=== PATIENT | female | born 1990 | race Caucasian/White ===

== ENCOUNTER 2016-03-06 17:53 | Emergency (ER) | payer OTHER ==
[~2016-03-06] VITALS: Ht 167.6 cm; Wt 109.7 kg
[~2016-03-06 17:53] MED LIST: BACT800T5 PO; CEPH-460 PO; PERC7.5T13 PO
[2016-03-06 17:56] VITALS: BP 135/99; PULSE 110; RESP 16; TEMP 98.7; O2SAT 98
[2016-03-06] MEDS ORDERED: MEDR4PAK PO (18:22)
[2016-03-06] MEDS ORDERED: AMOX875T PO (18:22)
--- NOTE | 2016-03-06 18:24 | PD ---
HPI Chief Complaint: ENT Complaint Time Seen by Provider: 18:22 Travel History International Travel<30 days: No Contact w/Intl Traveler<30days: No Traveled to known affect area: No History of Present Illness HPI 26-year-old female that presents to the ED for evaluation of bilateral ear pain. Patient has had this for the past couple of weeks but today and yesterday got worse. Per patient she does have a history of ear infections in the past with similar symptoms. Per patient he was initially just a little ache with some congestion and mild cough but she attributed this to the change in climate. Today the pain became more severe and that she is having some nausea and vomiting from it. Per patient is the same symptoms she always gets. She denies history of asthma. Not chest or shortness of breath. Allergy to Toradol. Has been taking OTC meds with minimal relief. Pain is 7 out of 10. Denies any fevers chills or sweats. PFSH Past Medical History Cancer: No Diabetes: No Diminished Hearing: No Seizures: No Thyroid Disease: No Ulcer: No Tetanus Vaccination: Unknown ?: Not LMP: 02/20/16 Past Surgical History Tonsillectomy: Yes Other Surgery: Yes (T&A AT 5 YEARS OLD.) Social History Alcohol Use: Yes (OCC) Tobacco Use: No Substance Use: Yes (OCC MARIJUANA) Allergies-Medications (Allergen,Severity, Reaction): Coded Allergies: Toradol (Verified Allergy, Mild, HIVES, 03/06/16) Reported Meds & Prescriptions Reported Meds & Active Scripts Active Medrol Dosepak (Methylprednisolone) 4 Mg Dspk 4 Mg PO DIRECTED Per Pharmacist direction Amoxicillin 875 Mg Tab 875 Mg PO BID 10 Days Review of Systems Except as stated in HPI: all other systems reviewed are Neg Physical Exam Narrative GENERAL: Well-nourished, well-developed patient in no apparent distress. SKIN: Warm and dry. HEAD: Atraumatic. Normocephalic. EYES: Pupils equal and round reactive to light and accommodation. No scleral icterus. No injection or drainage. ENT: No nasal bleeding or discharge. Mucous membranes pink and moist. TMs are red and bulging bilaterally.. No mastoid tenderness. Ear canals are intact bilaterally. No lymphadenopathy. Nostril mucosa is red and moist with clear mucus noted. No sinus tenderness to palpation noted. Tonsils are not enlarged or swollen. No ulvua Deviation. Tongue is midline. NECK: Trachea midline. No JVD. No meningeal signs noted CARDIOVASCULAR: Regular rate and rhythm. RESPIRATORY: No accessory muscle use. Clear to auscultation. Breath sounds equal bilaterally. Data Data Last Documented VS Vital Signs Date Time Temp Pulse Resp B/P Pulse Ox O2 Delivery O2 Flow Rate FiO2 03/06/16 17:56 98.7 110 16 135/99 98 MDM Medical Decision Making Medical Screen Exam Complete: Yes Emergency Medical Condition: Yes Medical Record Reviewed: Yes Differential Diagnosis Otitis media versus otitis externa versus mastoiditis versus foreign body versus cerumen impaction versus perforated eardrum versus eustachian tube dysfunction versus bug in the ear versus serous otitis media Narrative Course 26-year-old female that presents to the ED for evaluation of bilateral ear pain. Patient was properly examined and was found to have signs and symptoms consistent with otitis media bilaterally. Patient was treated for this with amoxicillin and Medrol Dosepak. Told to follow with PCP. Take OTC medicines as needed. See ED worsening symptoms. Diagnosis Primary Impression: Otitis media Qualified Code: H65.03 - Bilateral acute serous otitis media, recurrence not specified Patient Instructions: General Instructions Additional Instructions: Motrin and Tylenol for pain and fever. You can use gxcv-[id number] antihistamine as well as well as Mucinex as needed for runny nose and congestion. Cough drops for cough as needed. Drink plenty of fluids. Follow-up with PCP. See ED for worsening symptoms. Med/Other Pt SpecificInfo: Prescription(s) given Scripts Methylprednisolone Dosepak (Medrol Dosepak)4 Mg Dspk4 Mg PO DIRECTED #1 DSPK Ref 0 Per Pharmacist direction Prov:Erika Segura DO 03/06/16 Amoxicillin 875 Mg Ali511 Mg PO BID 10 Days Prov:Erika Segura DO 03/06/16 Disposition: 01 DISCHARGE HOME Condition: Stable Kwasi Nathan Mar 06, 2016 18:24
== END 2016-03-06 18:32 | disposition home or self-care (01) ==
LOC: PHEFT 17:53
DX: H66.93 Otitis media, unspecified, bilateral (principal)
CPT/HCPCS: 99283

== ENCOUNTER 2016-05-25 13:21 | Emergency (ER) | payer SELFPAY ==
[~2016-05-25] VITALS: Ht 165.1 cm; Wt 106.0 kg
[~2016-05-25 13:21] MED LIST changes: +AMOX875T PO; -BACT800T5 PO; -CEPH-460 PO; +MEDR4PAK PO; -PERC7.5T13 PO
[2016-05-25 13:30] VITALS: BP 135/102; PULSE 100; RESP 17; TEMP 98.1; O2SAT 98
--- NOTE | 2016-05-25 13:43 | PD ---
HPI Chief Complaint: ENT Complaint Time Seen by Provider: 13:43 Travel History International Travel<30 days: No Contact w/Intl Traveler<30days: No Traveled to known affect area: No History of Present Illness HPI 26-year-old female comes in with worsening bilateral ear pain right greater than left over the past week. Patient has history of recurrent ear pain and "otitis media" as well as sinus infections over the last several years. Patient states her pain is always worse first thing in the morning and wakes her up at night. Patient denies fever, chills, congestion, postnasal drip. She denies sore throat or other upper respiratory symptoms. Patient has no history of seasonal allergies. Patient denies dental pain per se but does have increased pain with chewing and yawning. Patient has been treated in the past with antibiotics for this, but always seems to come back. She is allergic to Toradol. PFSH Past Medical History Cancer: No Diabetes: No Diminished Hearing: No Seizures: No Thyroid Disease: No Ulcer: No ?: Not LMP: 2 WEEKS Past Surgical History Tonsillectomy: Yes Other Surgery: Yes (T&A AT 5 YEARS OLD.) Social History Alcohol Use: Yes (OCC) Tobacco Use: No Substance Use: Yes (OCC MARIJUANA) Allergies-Medications (Allergen,Severity, Reaction): Coded Allergies: Toradol (Verified Allergy, Mild, HIVES, 05/25/16) Reported Meds & Prescriptions Reported Meds & Active Scripts Active Amoxicillin 875 Mg Tab 875 Mg PO BID Flexeril (Cyclobenzaprine HCl) 10 Mg Tab 10 Mg PO DIRECTED at bedtime. Prednisone 20 Mg Tab 20 Mg PO BID Medrol Dosepak (Methylprednisolone) 4 Mg Dspk 4 Mg PO DIRECTED Per Pharmacist direction Amoxicillin 875 Mg Tab 875 Mg PO BID 10 Days Review of Systems Except as stated in HPI: all other systems reviewed are Neg General / Constitutional: No: Fever, Chills Eyes: No: Visual changes HENT: Positive: Congestion, Dental Difficulties, Earache, No: Headaches, Sore Throat, Rhinitis, Rhinorrhea, Nosebleed, Neck Stiffness, Ear Discharge Cardiovascular: No: Chest Pain or Discomfort Respiratory: No: Shortness of Breath Gastrointestinal: No: Abdominal Pain Genitourinary: No: Dysuria Musculoskeletal: No: Pain Skin: No Rash Neurologic: No: Weakness Psychiatric: No: Depression Endocrine: No: Polydipsia Hematologic/Lymphatic: No: Easy Bruising Physical Exam Narrative GENERAL: Patient is in no acute distress. SKIN: Warm and dry. Normal color. Normal turgor. No rash. HEAD: Atraumatic. Normocephalic. Patient is tenderness with palpation of TMJ bilaterally more right than left with audible and palpable click with mandibular maneuvers. EYES: Pupils equal and round. No scleral icterus. No injection or drainage. ENT: No nasal bleeding or discharge. Mucous membranes pink and moist. TMs are somewhat dull bilaterally but no injection or significant signs of infection. Pharynx is unremarkable. No significant lymphadenopathy. No exudate. No postnasal drip. No sinus tenderness to palpation. NECK: Trachea midline. No JVD. Supple nontender. No significant lymphadenopathy. CARDIOVASCULAR: Regular rate and rhythm. RESPIRATORY: No accessory muscle use. Clear to auscultation. Breath sounds equal bilaterally. MUSCULOSKELETAL: Extremities without clubbing, cyanosis, or edema. No obvious deformities. NEUROLOGICAL: Awake and alert. No obvious cranial nerve deficits. Motor grossly within normal limits. Five out of 5 muscle strength in the arms and legs. Normal speech. PSYCHIATRIC: Appropriate mood and affect; insight and judgment normal. Data Data Last Documented VS Vital Signs Date Time Temp Pulse Resp B/P Pulse Ox O2 Delivery O2 Flow Rate FiO2 05/25/16 13:42 20 05/25/16 13:30 98.1 100 135/102 98 MDM Medical Decision Making Medical Screen Exam Complete: Yes Emergency Medical Condition: Yes Differential Diagnosis Ear pain. Serous otitis. TMJ. Sinusitis. Narrative Course Patient is medically stable at time of exam. I do not see an obvious ear infection at this time, and suspect TMJ is the more likely cause of the patient's symptoms. Patient will be placed on prednisone 20 mg twice a day for 5 days. Patient is also given Flexeril 10 mg at bedtime #30. Patient is given a prescription for amoxicillin only to be taken if she develops sinusitis symptoms including fever and purulent drainage. We discussed TMJ and various treatment options including mouth guards etc. Patient is recommended to follow-up with her dentist regarding this issue. Patient can return the emergency Department with worsening symptoms as needed. Diagnosis Primary Impression: TMJ (temporomandibular joint disorder) Referrals: Dentist Patient Instructions: General Instructions, Temporomandibular Disorder (ED) Additional Instructions: I do not see an obvious ear infection at this time, and suspect TMJ is the more likely cause of the patient's symptoms. Patient will be placed on prednisone 20 mg twice a day for 5 days. Patient is also given Flexeril 10 mg at bedtime #30. Patient is given a prescription for amoxicillin only to be taken if she develops sinusitis symptoms including fever and purulent drainage. We discussed TMJ and various treatment options including mouth guards etc. Patient is recommended to follow-up with her dentist regarding this issue. Patient can return the emergency Department with worsening symptoms as needed. Med/Other Pt SpecificInfo: Prescription(s) given Scripts Amoxicillin 875 Mg Nwe429 Mg PO BID #20 TAB Prov:Akosua Lanza MD 05/25/16 Cyclobenzaprine (Flexeril)10 Mg Tab10 Mg PO DIRECTED #30 TAB Ref 0 at bedtime. Prov:Akosua Lanza MD 05/25/16 Prednisone 20 Mg Tab20 Mg PO BID #10 TAB Prov:Akosua Lanza MD 05/25/16 Disposition: 01 DISCHARGE HOME Condition: Stable Hayden Morelos May 25, 2016 13:43
[2016-05-25] MEDS ORDERED: CYCL1TAB29 PO (13:54)
[2016-05-25] MEDS ORDERED: AMOX875T PO (13:54)
[2016-05-25] MEDS ORDERED: PRED20 PO (13:54)
== END 2016-05-25 14:04 | disposition home or self-care (01) ==
LOC: PHEFT 13:21
DX: M26.603 Bilateral temporomandibular joint disorder, unspecified (principal)
CPT/HCPCS: 99282

== ENCOUNTER 2016-08-21 17:27 | Emergency (ER) | payer SELFPAY ==
[~2016-08-21] VITALS: Ht 165.1 cm; Wt 107.0 kg
[~2016-08-21 17:27] MED LIST changes: +CYCL1TAB29 PO; +PRED20 PO
[2016-08-21 17:36] VITALS: BP 156/106; PULSE 109; RESP 16; TEMP 98.7; O2SAT 99
--- NOTE | 2016-08-21 18:50 | RADRPT ---
EXAM DATE/TIME: 08/21/2016 18:09 [facility] COMPARISON: No previous studies available for comparison. INDICATIONS : Trauma, fall off skateboard. MEDICAL HISTORY : None. SURGICAL HISTORY : None. ENCOUNTER: Initial ACUITY: 1 day PAIN SCORE: 8/10 LOCATION: Left lateral foot FINDINGS: Three views of the left foot demonstrate no fracture or dislocation. The Lisfranc joint appears intac t. Mineralization is within normal limits and there is no significant arthropathy. No soft tissue abn ormality is identified. There are 2 linear serpiginous densities measuring up to 5 mm in the plantar aspect distal first digit soft tissues. CONCLUSION: 1. No fracture is identified. 2. Nonspecific linear density/foreign bodies in the plantar aspect soft tissues of the distal first d igit. Tano Del Rosario MD on August 21, 2016 at 18:46 Board Certified Radiologist. This report was verified electronically.
--- NOTE | 2016-08-21 18:53 | RADRPT ---
EXAM DATE/TIME: 08/21/2016 18:12 [facility] COMPARISON: No previous studies available for comparison. INDICATIONS : Trauma, fall off skateboard. MEDICAL HISTORY : None. SURGICAL HISTORY : None. ENCOUNTER: Initial ACUITY: 1 day PAIN SCORE: 8/10 LOCATION: Left lateral ankle FINDINGS: 3 views the left ankle demonstrate no fracture or dislocation. Ankle mortise is intact. Mineralizatio n is within normal limits and there is no significant arthropathy. No radiopaque foreign body is iden tified. There is lateral ankle soft tissue swelling. CONCLUSION: Lateral ankle soft tissue swelling. No fracture is identified. Tano Del Rosario MD on August 21, 2016 at 18:50 Board Certified Radiologist. This report was verified electronically.
--- NOTE | 2016-08-21 19:10 | PD ---
HPI Chief Complaint: Injury Time Seen by Provider: 18:00 Travel History International Travel<30 days: No Contact w/Intl Traveler<30days: No Traveled to known affect area: No History of Present Illness HPI 26-year-old female resents emergency department for evaluation of left ankle and foot pain status post twisting injury while riding a skateboard approximately 3 hours prior to arrival. Patient reports she has lateral ankle and foot pain, nonradiating, worse with weightbearing and movement, relieved with rest, severity 6 out of 10. She denies numbness or tingling in the extremity. No deformity noted. She denies falling to the ground. No head injury. No loss of consciousness. Denies any other injuries. [facility] Past Medical History Medical History: Denies Significant Hx Diminished Hearing: No Tetanus Vaccination: Unknown Influenza Vaccination: No ?: Not LMP: 3 WEEKS Past Surgical History Tonsillectomy: Yes Other Surgery: Yes (T&A AT 5 YEARS OLD.) Social History Alcohol Use: Yes (OCC) Tobacco Use: No Substance Use: Yes (OCC MARIJUANA) Allergies-Medications (Allergen,Severity, Reaction): Coded Allergies: Tramadol (Verified Allergy, Unknown, Hives, 08/21/16) Reported Meds & Prescriptions Reported Meds & Active Scripts Active Physical Exam Narrative GENERAL: Well-nourished, well-developed patient. SKIN: Focused skin assessment warm/dry. HEAD: Normocephalic. EYES: No scleral icterus. No injection or drainage. NECK: Supple, trachea midline. No JVD or lymphadenopathy. CARDIOVASCULAR: Regular rate and rhythm without murmurs, gallops, or rubs. RESPIRATORY: Breath sounds equal bilaterally. No accessory muscle use. GASTROINTESTINAL: Abdomen soft, non-tender, nondistended. MUSCULOSKELETAL: No cyanosis. Left ankle and foot: Notable swelling and tenderness to the lateral malleolus and over the base of the fifth metatarsal. 2+ distal pulses. Normal sensation with 2-point termination. Brisk cap refill. No deformity BACK: Nontender without obvious deformity. No CVA tenderness. Data Data Last Documented VS Vital Signs Date Time Temp Pulse Resp B/P Pulse Ox O2 Delivery O2 Flow Rate FiO2 08/21/16 17:36 98.7 109 16 156/106 99 Orders Ankle, Complete ([id number]) (08/21/16 ) Foot, Complete ([id number]) (08/21/16 ) [facility] Medical Decision Making Medical Screen Exam Complete: Yes Emergency Medical Condition: Yes Differential Diagnosis Left ankle and foot pain- sprain versus strain versus fracture Narrative Course [age] female presents emergency Department with left ankle and foot pain status post twisting injury while riding a skate board. Patient denies falling to the ground. She denies any other injuries. The extremity is neurovascularly intact without deformity. X-ray reveal no fracture within the ankle or foot. There was an incidental finding of 2 small radiopaque foreign bodies in the great toe unrelated to this injury. This was discussed with patient she was instructed to follow up with her primary. Diagnosis Primary Impression: Ankle sprain Qualified Code: S93.402A - Sprain of left ankle, unspecified ligament, initial encounter Departure Forms: Tests/Procedures, Work Release Enter return to work date: Aug 25, 2016 Special Instructions: allow use of crutches until weight bearing possible. Disposition: 01 DISCHARGE HOME Condition: Stable Zoila Devine Aug 21, 2016 19:10
== END 2016-08-21 19:36 | disposition home or self-care (01) ==
LOC: PHEFT 17:27
DX: S93.402A Sprain of unspecified ligament of left ankle, initial encounter (principal); X50.1XXA Overexertion from prolonged static or awkward postures, initial encounter; Y93.51 Activity, roller skating (inline) and skateboarding; Y92.9 Unspecified place or not applicable; Y99.8 Other external cause status
CPT/HCPCS: 73610; 73630; 99283; E0113; L1906

== ENCOUNTER 2017-01-26 11:03 | Emergency (ER) | payer SELFPAY ==
[~2017-01-26] VITALS: Ht 165.1 cm; Wt 111.0 kg
[2017-01-26 11:08] VITALS: BP 144/90; PULSE 107; RESP 18; O2SAT 98
--- NOTE | 2017-01-26 12:37 | PD ---
HPI Chief Complaint: ENT Complaint Time Seen by Provider: 11:53 Travel History International Travel<30 days: No Contact w/Intl Traveler<30days: No Traveled to known affect area: No History of Present Illness HPI 26-year-old female presents to the emergency room for evaluation of nonproductive cough, congestion, sore throat, and earache for the past 3 days. Patient states it started off as left ear pain and has progressed and the rest of her symptoms. Cough is severe and causing pain in her back. Over-the- counter medications have not improved his symptoms. She always gets sick with similar symptoms. Her roommate was sick with the same symptoms last week. She denies any fever, chills, nausea, or vomiting. No chronic medical conditions or daily medications. History Past Medical Histgory Tetanus Vaccination: Unknown LMP: 1 WEEK AGO Social History Alcohol Use: Yes (OCC) Tobacco Use: No Allergies-Medications (Allergen,Severity, Reaction): Coded Allergies: tramadol (Unverified Allergy, Unknown, Hives, 01/26/17) Reported Meds & Prescriptions Reported Meds & Active Scripts Active No Active Prescriptions or Reported Medications Review of Systems Except as stated in HPI: all other systems reviewed are Neg Physical Exam Narrative GENERAL: Well-nourished, well-developed female in no acute distress. Afebrile. Ambulatory. SKIN: Focused skin assessment warm/dry. HEAD: Normocephalic. EYES: No scleral icterus. No injection or drainage. NECK: Supple, trachea midline. No JVD or lymphadenopathy. ENT: Mucosa pink and moist. Mild erythema of pharynx without edema or exudates. No uvular edema. No uvular, palatal, or tonsillar deviation. Airway patent. Nasal turbinates appear normal without nasal blood, purulent drainage or septal hematoma. EARS: Bilateral pinnae and external canals appear within normal limits. Bilateral tympanic membranes without erythema, dullness or perforation. CARDIOVASCULAR: Regular rate and rhythm without murmurs, gallops, or rubs. RESPIRATORY: Breath sounds equal bilaterally. No accessory muscle use. No crackles, rales, wheezes, or rhonchi. Data Data Last Documented VS Vital Signs Date Time Temp Pulse Resp B/P (MAP) Pulse Ox O2 Delivery O2 Flow Rate FiO2 01/26/17 11:08 107 18 144/90 (108) 98 MDM Medical Screen Exam Complete: Yes Emergency Medical Condition: No Differential Diagnosis URI Narrative Course 26-year-old female presents to the emergency room for evaluation of nonproductive cough, condition, sore throat, and earache for the past 3 days. Patient is afebrile and well-appearing in the emergency room. Vital signs stable. Physical exam is unremarkable. No evidence of bacterial infection. This is viral URI. Patient told to take egio-ldk-qbtymjc medications, rest, drink plenty of fluids, and follow up with PCP. There are no urgent or emergent medical conditions at this time. A medical screening exam was performed: At the time of evaluation the presenting medical condition was determined not to be of an emergent nature. The patient was given the option of receiving additional care, but declined. Patient was given options for additional community resources from which to obtain care. The Patient Has Been advised to seek medical attention for their presenting complaint. The patient has been advised to return to the ER at any time if an emergent condition develops. Primary Impression: Encounter for medical screening examination Scripts No Active Prescriptions or Reported Meds Disposition: 01 DISCHARGE HOME Condition: Stable Alanna Townsend Jan 26, 2017 12:37
== END 2017-01-26 12:34 | disposition left against medical advice (07) ==
LOC: PHEFT 11:03
DX: R05 Cough (principal)
CPT/HCPCS: 99281

== ENCOUNTER 2017-03-23 20:22 | Emergency (ER) | payer SELFPAY | END 2017-03-23 21:01 | disposition home or self-care (01) | LOC: PHEFT 20:22 | DX: H60.93 Unspecified otitis externa, bilateral (principal); F12.90 Cannabis use, unspecified, uncomplicated | CPT/HCPCS: 99283 ==

== ENCOUNTER 2017-04-04 18:13 | Emergency (ER) | payer SELFPAY ==
[~2017-04-04] VITALS: Ht 167.6 cm; Wt 112.0 kg
[~2017-04-04 18:13] MED LIST changes: -AMOX875T PO; +CORTI10A EACH EAR; -CYCL1TAB29 PO; -MEDR4PAK PO; -PRED20 PO
[2017-04-04 18:31] VITALS: BP 148/83; PULSE 97; RESP 16; TEMP 99; O2SAT 99
--- NOTE | 2017-04-04 20:14 | PD ---
HPI Chief Complaint: Pain: Acute or Chronic Time Seen by Provider: 19:55 Travel History International Travel<30 days: No Contact w/Intl Traveler<30days: No Traveled to known affect area: No History of Present Illness HPI 27-year-old female that presents to the ED for evaluation of back injury. Per patient this happened about a week ago. Per patient she was in a dresser and she fell from it. Patient had an injury to her back and has been doing okay but today this morning she woke up with more pain only on the left side. Per patient she denies any injuries since. She denies any overuse. She denies any heavy lifting. She states that the pain is 6 out of 10 and orally on the left side with certain range of motion. Denies any urinary or bowel movement issues. No numbness, tilling, weakness. No prior injuries or fractures per patient. No surgeries. Has been taking OTC meds with some relief. Allergy to tramadol. Patient mainly concerned because she is starting to work on Friday and her work my note let her go to work if she is having worsening discomfort. PFSH Past Medical History Hx Anticoagulant Therapy: No Cardiovascular Problems: Yes (HTN) Diabetes: No Diminished Hearing: No Immunizations Current: Yes ?: Not Past Surgical History Tonsillectomy: Yes (adnoids) Other Surgery: Yes (T&A AT 5 YEARS OLD.) Social History Alcohol Use: Yes (OCC) Tobacco Use: No Substance Use: Yes ([facility] MARIJUANA) Allergies-Medications (Allergen,Severity, Reaction): Coded Allergies: tramadol (Verified Allergy, Unknown, Hives, 04/04/17) Reported Meds & Prescriptions Reported Meds & Active Scripts Active No Active Prescriptions or Reported Medications Review of Systems Except as stated in HPI: all other systems reviewed are Neg Physical Exam Narrative GENERAL: SKIN: Warm and dry. HEAD: Atraumatic. Normocephalic. EYES: Pupils equal and round. No scleral icterus. No injection or drainage. ENT: No nasal bleeding or discharge. Mucous membranes pink and moist. NECK: Trachea midline. No JVD. CARDIOVASCULAR: Regular rate and rhythm. RESPIRATORY: No accessory muscle use. Clear to auscultation. Breath sounds equal bilaterally. GASTROINTESTINAL: Abdomen soft, non-tender, nondistended. Hepatic and splenic margins not palpable. MUSCULOSKELETAL: Extremities without clubbing, cyanosis, or edema. No obvious deformities. No lumbar, thoracic, cervical spine tenderness to palpation. Patient does have reproducible pain on the musculature on the left thoracic spine mainly on the lower aspect of it. Pain with range of motion especially with flexion and extension of the spine. 2+ pulses bilaterally. NEUROLOGICAL: Awake and alert. No obvious cranial nerve deficits. Motor grossly within normal limits. Five out of 5 muscle strength in the arms and legs. Normal speech. PSYCHIATRIC: Appropriate mood and affect; insight and judgment normal. Data Data Last Documented VS Vital Signs Date Time Temp Pulse Resp B/P (MAP) Pulse Ox O2 Delivery O2 Flow Rate FiO2 04/04/17 18:31 99.0 97 16 148/83 (104) 99 Orders Orders Spine, Thoracic-Ap/Lat/Sw(3vw) (04/04/17 ) [facility] Medical Decision Making Medical Screen Exam Complete: Yes Emergency Medical Condition: Yes Medical Record Reviewed: Yes Interpretation(s) X-ray of the thoracic spine show no sign of bony injury. Differential Diagnosis Muscle strain versus muscle spasm versus contusion versus fracture Narrative Course 27-year-old female that presents to the ED for evaluation of back pain. Patient was properly examined and was found to have signs and symptoms consistent appears to be likely muscle strain. X-ray was ordered. X-ray showed no sign of acute bony injury. Patient was reassured. Patient was sent home with prescriptions for diclofenac sodium and Robaxin. Ice or warm compresses encouraged. No heavy lifting until better. See ED worsening symptoms. Follow with PCP. Diagnosis Primary Impression: Back strain Qualified Codes: S39.012A - Strain of muscle, fascia and tendon of lower back , initial encounter Patient Instructions: General Instructions Additional Instructions: Take medications as prescribed. Follow-up with PCP. See ED for any worsening symptoms. Do not drink or drive while taking pain medication. Apply ice or heat as needed for pain Med/Other Pt SpecificInfo: Prescription(s) given Scripts No Active Prescriptions or Reported Meds Disposition: 01 DISCHARGE HOME Condition: Stable Kwasi Nathan Apr 04, 2017 20:14
[2017-04-04] MEDS ORDERED: ROBA500T PO (20:16)
[2017-04-04] MEDS ORDERED: DICL75TA PO (20:16)
--- NOTE | 2017-04-04 21:30 | RADRPT ---
EXAM DATE/TIME: 04/04/2017 20:24 [facility] COMPARISON: No previous studies available for comparison. INDICATIONS : Left side thoracic spine pain post fall. MEDICAL HISTORY : None. SURGICAL HISTORY : None. ENCOUNTER: Initial ACUITY: 1 week PAIN SCORE: 7/10 LOCATION: Bilateral thoracic pain FINDINGS: There is normal alignment of the thoracic vertebral bodies. Vertebral body height is maintained. No evidence of fracture or subluxation. Pedicles are intact at all levels. The paravertebral reflecti ons are not thickened. CONCLUSION: No acute disease. Jeison Kincaid MD on April 04, 2017 at 21:27 Board Certified Radiologist. This report was verified electronically.
== END 2017-04-04 20:53 | disposition home or self-care (01) ==
LOC: PHED 18:13 → PHEFT 20:53
DX: S39.012A Strain of muscle, fascia and tendon of lower back, initial encounter (principal); W08.XXXA Fall from other furniture, initial encounter
CPT/HCPCS: 72072; 99283

== ENCOUNTER 2017-05-29 13:22 | Emergency (ER) | payer SELFPAY ==
[~2017-05-29] VITALS: Ht 165.1 cm; Wt 111.4 kg
[~2017-05-29 13:22] MED LIST changes: -CORTI10A EACH EAR; +DICL75TA PO; +ROBA500T PO
[2017-05-29 13:24] VITALS: BP 154/102; PULSE 105; RESP 16; TEMP 98.6; O2SAT 97
[2017-05-29] MEDS ORDERED: AMOX500C PO (14:59)
--- NOTE | 2017-05-29 15:00 | PD ---
HPI Chief Complaint: ENT Complaint Time Seen by Provider: 14:30 Travel History International Travel<30 days: No Contact w/Intl Traveler<30days: No Traveled to known affect area: No History of Present Illness HPI 27-year-old female here for right ear pain 4 days. Denies fever or chills. No drainage from the ear. History of ear infections in the past. Symptom severity is moderate. No aggravating or alleviating factors. PFSH Past Medical History Hx Anticoagulant Therapy: No Cardiovascular Problems: Yes (HTN) Diabetes: No Diminished Hearing: No Medical other: Yes (FREQUENT EAR INFECTIONS) Psychiatric: No Immunizations Current: Yes ?: Unknown LMP: 2 WEEKS AGO Past Surgical History Tonsillectomy: Yes (adnoids) Other Surgery: Yes (T&A AT 5 YEARS OLD.) Social History Alcohol Use: No Tobacco Use: No Substance Use: Yes (OCC MARIJUANA) Allergies-Medications (Allergen,Severity, Reaction): Coded Allergies: tramadol (Verified Allergy, Unknown, Hives, 05/29/17) Reported Meds & Prescriptions Reported Meds & Active Scripts Active Diclofenac Sodium DR (Diclofenac Sodium) 75 Mg Tabdr 75 Mg PO BID PRN Robaxin (Methocarbamol) 500 Mg Tab 500 Mg PO TID Review of Systems Except as stated in HPI: all other systems reviewed are Neg General / Constitutional: No: Fever Eyes: No: Visual changes HENT: Positive: Earache Cardiovascular: No: Chest Pain or Discomfort Respiratory: No: Shortness of Breath Gastrointestinal: No: Abdominal Pain Genitourinary: No: Dysuria Physical Exam Narrative GENERAL: Alert well-appearing 27-year-old female SKIN: Warm and dry. HEAD: Normocephalic. EYES: No injection or drainage. Ear/nose/throat: Right TM erythema, bulging, loss of landmarks. No canal swelling or drainage. No perforation. No mastoid tenderness. NECK: Supple, trachea midline. No JVD or lymphadenopathy. CARDIOVASCULAR: Regular rate and rhythm RESPIRATORY: Breath sounds equal bilaterally. No accessory muscle use. Data Data Last Documented VS Vital Signs Date Time Temp Pulse Resp B/P (MAP) Pulse Ox O2 Delivery O2 Flow Rate FiO2 05/29/17 13:24 98.6 105 16 154/102 (119) 97 MDM Medical Decision Making Medical Screen Exam Complete: Yes Emergency Medical Condition: Yes Differential Diagnosis Otitis media, otitis externa, mastoiditis unlikely Narrative Course -year-old female here with right-sided otitis media. Nontoxic appearing. She 'll be treated with amoxicillin. Diagnosis Primary Impression: Otitis media Qualified Codes: H66.91 - Otitis media, unspecified, right ear Referrals: Primary Care Physician Departure Forms: Tests/Procedures, Work Release Enter return to work date: May 30, 2017 Additional Instructions: Medication as directed. Tylenol or ibuprofen for pain. Scripts Amoxicillin (Amoxicillin) 500 Mg Cap 500 MG PO TID for Infection for 10 Days, CAP 0 Refills Prov: Zoila Devine 05/29/17 Disposition: 01 DISCHARGE HOME Condition: Stable Zoila Devine May 29, 2017 15:00
== END 2017-05-29 15:05 | disposition home or self-care (01) ==
LOC: PHEFT 13:22
DX: H66.91 Otitis media, unspecified, right ear (principal); F12.90 Cannabis use, unspecified, uncomplicated
CPT/HCPCS: 99283

== ENCOUNTER 2017-06-30 15:37 | Emergency (ER) | payer SELFPAY ==
[~2017-06-30] VITALS: Ht 167.6 cm; Wt 112.0 kg
[~2017-06-30 15:37] MED LIST changes: +AMOX500C PO
[2017-06-30 15:48] VITALS: BP 180/81; PULSE 96; RESP 18; TEMP 98.9; O2SAT 97
[2017-06-30] MEDS ORDERED: AMOX500C PO (16:14)
--- NOTE | 2017-06-30 16:15 | PD ---
HPI Chief Complaint: ENT Complaint Time Seen by Provider: 16:02 Travel History International Travel<30 days: No Contact w/Intl Traveler<30days: No Traveled to known affect area: No History of Present Illness HPI 27-year-old female here with bilateral ear pain right greater than left 7 days. Pain is constant, throbbing, nonradiating localized to the ears. She reports she had URI-like symptoms the week prior. She has a history of frequent ear infections. Symptom severity is moderate. No aggravating or alleviating factors. No drainage from the ears. PFSH Past Medical History Hx Anticoagulant Therapy: No Cardiovascular Problems: Yes (HTN) Diabetes: No Diminished Hearing: No Psychiatric: No Immunizations Current: Yes ?: Not LMP: LAST WEEK Past Surgical History Tonsillectomy: Yes (adnoids) Other Surgery: Yes (T&A AT 5 YEARS OLD.) Social History Alcohol Use: No Tobacco Use: No Substance Use: Yes (OCC MARIJUANA) Allergies-Medications (Allergen,Severity, Reaction): Coded Allergies: tramadol (Verified Allergy, Unknown, Hives, 06/30/17) Reported Meds & Prescriptions Reported Meds & Active Scripts Active No Active Prescriptions or Reported Medications Review of Systems Except as stated in HPI: all other systems reviewed are Neg Physical Exam Narrative GENERAL: Alert and well-appearing 27-year-old male SKIN: Warm and dry. HEAD: Normocephalic. EYES:No injection or drainage. ENT: Bilateral TM erythema right greater than left. TMs are bulging, loss of landmarks, no perforation. No canal swelling or drainage. No mastoid tenderness. NECK: Supple, trachea midline. No lymphadenopathy. CARDIOVASCULAR: Regular rate and rhythm without murmurs, gallops, or rubs. RESPIRATORY: Breath sounds equal bilaterally. No accessory muscle use. GASTROINTESTINAL: Abdomen soft, non-tender, nondistended. MUSCULOSKELETAL: No cyanosis, or edema. Data Data Last Documented VS Vital Signs Date Time Temp Pulse Resp B/P (MAP) Pulse Ox O2 Delivery O2 Flow Rate FiO2 06/30/17 15:48 98.9 96 18 180/81 (114) 97 MDM Medical Decision Making Medical Screen Exam Complete: Yes Emergency Medical Condition: Yes Differential Diagnosis Otitis media, otitis externa, URI Narrative Course 27-year-old female here with otitis media. She is nontoxic appearing. She will be treated with amoxicillin. Diagnosis Primary Impression: Otitis media Qualified Codes: H66.90 - Otitis media, unspecified, unspecified ear Referrals: Primary Care Physician Additional Instructions: Antibiotics as directed Scripts Amoxicillin (Amoxicillin) 500 Mg Cap 500 MG PO TID for Infection for 10 Days, CAP 0 Refills Prov: Zoila Devine 06/30/17 Disposition: 01 DISCHARGE HOME Condition: Stable Zoila Devine Jun 30, 2017 16:15
== END 2017-06-30 16:34 | disposition home or self-care (01) ==
LOC: PHEFT 15:37
DX: H66.90 Otitis media, unspecified, unspecified ear (principal); I10 Essential (primary) hypertension; F12.90 Cannabis use, unspecified, uncomplicated
CPT/HCPCS: 99283